=== PATIENT | female | born 1995 | race Two or more races ===

== ENCOUNTER 2019-07-30 12:37 | Inpatient (IN) | payer OTHER ==
[~2019-07-30] VITALS: Ht 167.6 cm; Wt 84.4 kg
[2019-08-03] MEDS ORDERED: PEPCID AC20 MG PO (08:03)
== END 2019-08-03 09:22 | disposition home or self-care (01) | DRG 440 ==
LOC: ER 12:37 → SURG 07-31 10:17
PROVIDERS: ADMIT Internal Medicine; ATTEND Internal Medicine
PROC: BW21ZZZ Computerized Tomography (CT Scan) of Abdomen and Pelvis (ICD-10-PCS; principal; 2019-07-31)
PROC: BW40ZZZ Ultrasonography of Abdomen (ICD-10-PCS; 2019-07-31)
DX: K85.20 Alcohol induced acute pancreatitis without necrosis or infection (principal); E86.0 Dehydration; K29.70 Gastritis, unspecified, without bleeding; E80.6 Other disorders of bilirubin metabolism

== ENCOUNTER 2019-10-25 17:16 | Emergency (ER) | payer OTHER ==
[~2019-10-25] VITALS: Ht 160 cm; Wt 81.2 kg
[~2019-10-25 17:16] MED LIST: PEPCID AC20 MG PO
== END 2019-10-25 20:54 | disposition home or self-care (01) ==
LOC: ER 17:16
DX: R10.13 Epigastric pain (principal); Z20.828 Contact with and (suspected) exposure to other viral communicable diseases

== ENCOUNTER 2019-11-02 14:28 | Emergency (ER) | payer OTHER ==
[~2019-11-02] VITALS: Ht 160 cm; Wt 79.4 kg
[2019-11-02] MEDS ORDERED: PEPCID AC10 MG PO (14:35)
== END 2019-11-02 19:51 | disposition home or self-care (01) ==
LOC: ER 14:28
DX: K29.60 Other gastritis without bleeding (principal)

== ENCOUNTER 2020-01-13 11:19 | Emergency (ER) | payer OTHER ==
[~2020-01-13] VITALS: Ht 160 cm; Wt 76.7 kg
[~2020-01-13 11:19] MED LIST changes: +PEPCID AC10 MG PO
== END 2020-01-13 16:12 | disposition home or self-care (01) ==
LOC: ER 11:19
DX: K52.89 Other specified noninfective gastroenteritis and colitis (principal)

== ENCOUNTER 2020-01-15 15:54 | Emergency (ER) | payer OTHER ==
[~2020-01-15] VITALS: Ht 160 cm; Wt 76.7 kg
== END 2020-01-15 23:20 | disposition home or self-care (01) ==
LOC: ER 15:54
DX: K29.60 Other gastritis without bleeding (principal); Z03.818 Encounter for observation for suspected exposure to other biological agents ruled out

== ENCOUNTER 2020-02-12 21:02 | Emergency (ER) | payer OTHER ==
[~2020-02-12] VITALS: Ht 160 cm; Wt 73.5 kg
[2020-02-13] MEDS ORDERED: PEPCID40 MG PO (06:48)
[2020-02-13] MEDS ORDERED: PROTONIX40 MG PO (06:48)
== END 2020-02-13 06:50 | disposition home or self-care (01) ==
LOC: ER 21:02
DX: K21.9 Gastro-esophageal reflux disease without esophagitis (principal)

== ENCOUNTER 2020-03-19 14:28 | Emergency (ER) | payer OTHER ==
[~2020-03-19] VITALS: Ht 160 cm; Wt 68.5 kg
[~2020-03-19 14:28] MED LIST changes: +PEPCID40 MG PO; +PROTONIX40 MG PO
== END 2020-03-20 02:38 | disposition home or self-care (01) ==
LOC: ER 14:28
DX: K52.89 Other specified noninfective gastroenteritis and colitis (principal); R11.2 Nausea with vomiting, unspecified

== ENCOUNTER 2020-03-21 10:49 | Emergency (ER) | payer OTHER ==
[~2020-03-21] VITALS: Ht 160 cm; Wt 66.2 kg
== END 2020-03-21 22:44 | disposition home or self-care (01) ==
LOC: ER 10:49
DX: K29.70 Gastritis, unspecified, without bleeding (principal); Z03.818 Encounter for observation for suspected exposure to other biological agents ruled out

== ENCOUNTER 2020-09-18 20:59 | Emergency (ER) | payer OTHER ==
[~2020-09-18] VITALS: Ht 160 cm; Wt 67.1 kg
[2020-09-19] MEDS ORDERED: PREVACID30 MG PO (12:35)
[2020-09-19] MEDS ORDERED: PEPCID AC20 MG PO (12:35)
[2020-09-19] MEDS ORDERED: CARAFATE1 GM PO (12:49)
[2020-11-26] MEDS ORDERED: ZOFRAN8 MG PO (03:39)
[2020-11-26] MEDS ORDERED: PROTONIX40 MG PO (03:39)
[2020-11-26] MEDS ORDERED: PEPCID40 MG PO (03:39)
== END 2020-09-19 13:01 | disposition home or self-care (01) ==
LOC: ER 20:59
DX: K29.00 Acute gastritis without bleeding (principal); R11.2 Nausea with vomiting, unspecified

== ENCOUNTER → 2020-11-25 | Emergency (ER) | payer OTHER ==
[~2020-11-25] VITALS: Ht 160 cm; Wt 67.1 kg
[~2020-11-25] MED LIST changes: +CARAFATE1 GM PO; +PREVACID30 MG PO; +ZOFRAN8 MG PO
== END | disposition home or self-care (01) ==
LOC: ER 13:56
DX: R11.10 Vomiting, unspecified (principal); K29.60 Other gastritis without bleeding

== ENCOUNTER 2020-11-27 12:02 | Emergency (ER) | payer OTHER ==
[~2020-11-27] VITALS: Ht 160 cm; Wt 67.1 kg
== END 2020-11-28 06:42 ==
LOC: ER 12:02
DX: K29.70 Gastritis, unspecified, without bleeding (principal); R10.13 Epigastric pain; R11.11 Vomiting without nausea; Z03.818 Encounter for observation for suspected exposure to other biological agents ruled out

== ENCOUNTER 2021-05-25 14:18 | Emergency (ER) | payer OTHER ==
[~2021-05-25] VITALS: Ht 160 cm; Wt 59.0 kg
== END 2021-05-25 19:25 | disposition home or self-care (01) ==
LOC: ER 14:18
DX: O20.9 Hemorrhage in early pregnancy, unspecified (principal); Z3A.08 8 weeks gestation of pregnancy; K29.00 Acute gastritis without bleeding

== ENCOUNTER 2021-05-31 19:05 | Inpatient (IN) | payer OTHER ==
[~2021-05-31] VITALS: Ht 162.6 cm; Wt 65.8 kg
[2021-05-31] MEDS ORDERED: PRENATALES (19:20)
== END 2021-06-04 14:56 | disposition home or self-care (01) | DRG 833 ==
LOC: ER 19:05 → OB/GYN 06-01 13:21
PROVIDERS: ADMIT Obstetrics & Gynecology; ATTEND Obstetrics & Gynecology
PROC: 4A1HXCZ Monitoring of Products of Conception, Cardiac Rate, External Approach (ICD-10-PCS; principal; 2021-06-01)
DX: O21.0 Mild hyperemesis gravidarum (principal); Z3A.09 9 weeks gestation of pregnancy; Z20.822 Contact with and (suspected) exposure to COVID-19

== ENCOUNTER 2021-06-11 23:15 | Inpatient (IN) | payer OTHER ==
[~2021-06-11 23:15] MED LIST changes: +PRENATALES
--- NOTE | 2021-06-11 23:28 | NUR ---
SE RECIBE PTE ALERTA Y ORIENTADA POR JUNO. PTE DE DR. HAMMOND, EMBARAZADA DE 10 SEMANAS INDICA TENER VOMITOS, NAUSEAS Y DEBILIDAD DESDE LA MANANA DE HOY.
--- NOTE | 2021-06-12 01:00 | NUR ---
PTE FEMENINA ALERTA Y ORIENTADA EN LAS JUNO ESFERAS ES EVALUADA POR . SE ORIENTA SOBRE ORDENES DE [place] REFIERE COMPRENDER. SE EXTRAEN MUESTRAS DE LABORATORIOS Y SE CANALIZA VENA BAJO MEDIDAS ASEPTICAS. SE ADMINISTRA MEDICAMENTOS, BAJO MEDIDAS ASEPTICAS. PTE MANEJADA POR DEONTE FUCHS.
[2021-06-12] MEDS ORDERED: PRENATAL + DHA1 EAC1 (10:38)
== END 2021-07-04 13:53 | disposition home or self-care (01) | DRG 831 ==
LOC: ER 23:15 → OB/GYN 06-12 07:00 → SEC-K 06-12 07:00 → OB/GYN 06-12 08:32
PROVIDERS: ADMIT Obstetrics & Gynecology; ATTEND Obstetrics & Gynecology
PROC: 4A1HXCZ Monitoring of Products of Conception, Cardiac Rate, External Approach (ICD-10-PCS; principal; 2021-06-12)
PROC: BW40ZZZ Ultrasonography of Abdomen (ICD-10-PCS; 2021-06-17)
PROC: BF37ZZZ Magnetic Resonance Imaging (MRI) of Pancreas (ICD-10-PCS; 2021-06-18)
PROC: BW40ZZZ Ultrasonography of Abdomen (ICD-10-PCS; 2021-06-21)
PROC: BY49ZZZ Ultrasonography of First Trimester, Single Fetus (ICD-10-PCS; 2021-06-21)
PROC: BF37ZZZ Magnetic Resonance Imaging (MRI) of Pancreas (ICD-10-PCS; 2021-06-25)
DX: O21.0 Mild hyperemesis gravidarum (principal); O26.891 Other specified pregnancy related conditions, first trimester; K85.80 Other acute pancreatitis without necrosis or infection; O21.1 Hyperemesis gravidarum with metabolic disturbance; K52.89 Other specified noninfective gastroenteritis and colitis; Z20.822 Contact with and (suspected) exposure to COVID-19; Z3A.12 12 weeks gestation of pregnancy; K29.00 Acute gastritis without bleeding; K21.9 Gastro-esophageal reflux disease without esophagitis

== ENCOUNTER 2021-10-16 13:24 | Outpatient (CLI) | payer OTHER ==
[~2021-10-16 13:24] MED LIST changes: +PRENATAL + DHA1 EAC1
== END 2021-10-16 14:22 | disposition home or self-care (01) ==
LOC: NST 13:24
PROVIDERS: ATTEND Obstetrics & Gynecology
DX: Z34.83 Encounter for supervision of other normal pregnancy, third trimester (principal)

== ENCOUNTER 2021-11-01 10:48 | Outpatient (CLI) | payer OTHER | END 2021-11-02 10:40 | disposition home or self-care (01) | LOC: OBS/DEL 10:48 | PROVIDERS: ATTEND Obstetrics & Gynecology | DX: O46.8X3 Other antepartum hemorrhage, third trimester (principal); Z3A.30 30 weeks gestation of pregnancy ==

== ENCOUNTER 2023-12-06 12:23 | Emergency (ER) | payer OTHER ==
[~2023-12-06] VITALS: Ht 160 cm; Wt 70.3 kg
[2023-12-06] MEDS ORDERED: ONDANSETRON HCL 2 MG/ML VIAL IV ONE (13:30)
[2023-12-06] MEDS ORDERED: FAMOtidine 10 MG/ML (4ML VIAL) IV ONE (13:30)
[2023-12-06] MEDS ORDERED: 0.9 % SODIUM CHLORIDE 1,000 ML IV ONE (13:30)
[2023-12-06 14:23] LABS: HEMATOCRIT 43.8 % (36.0-45.00); HEMOGLOBIN 15.7 g/dL (12.0-15.00); MEAN CELL VOLUME 88.1 fL (80.00-100.00); MEAN CORPUSCULAR HEMOGLOBIN 31.6 pg (27.00-32.0); MEAN CORPUSCULAR HGB CONC 35.9 g/dl (32.0-36.0); PLATELET COUNT 356 K/uL (150-450); RED BLOOD COUNT 4.97 M/uL (4.00-6.00); RED CELL DISTRIBUTION WIDTH 12.8 % (11.5-14.5)
[2023-12-06 14:46] LABS: ALBUMIN 4.6 gm/dL (3.4-5.0); ALKALINE PHOSPHATASE 88 U/L (50-136); ALT/SGPT 26 U/L (12-78); AMYLASE 110 U/L (25-115); ANION GAP 13 (10.0-20.0); AST/SGOT 27 U/L (15-37); BILIRUBIN TOTAL 0.74 mg/dL (0.3-1.2); BLOOD UREA NITROGEN 16 mg/dL (7-18); BUN CREA RATIO 28 (7.0-25.0); CARBON DIOXIDE 28 mEq/L (21-32); CHLORIDE 99 mmol/L (98-107); CREATININE SERUM 0.58 mg/dL (0.55-1.02); GFR 122.91; GLOBULINA 4.3 G/DL (2.4-3.5); GLUCOSE FASTING 103 mg/dL (65-100); LIPASE 63 U/L (13-75); OSMOLALITY SERUM 273 MOSM/KG (275-295); POTASSIUM 3.89 mEq/L (3.5-5.1); SODIUM 136 mmol/L (136-145); TOTAL PROTEIN 8.9 gm/dL (6.4-8.2)
[2023-12-06 14:47] LABS: HCG QUANTITATIVE < 1 mUI/mL (1-3)
[2023-12-06] MEDS ORDERED: CEFTRIAXONE SODIUM 1,000 MG VIAL IV ONE (15:30)
[2023-12-06 16:13] LABS: URINE APPEARANCE Cloudy; URINE BILIRRUBIN Negative (NEGATIVE); URINE BLOOD Negative; URINE COLOR Yellow; URINE GLUCOSE Negative (NEGATIVE); URINE LEUKOCYTE Negative; URINE NITRATE Negative
[2023-12-06 16:17] LABS: URINE BACTERIA 5053.8 uL (0.0-1933); URINE EPITHELIAL CELLS 124.1 uL (0.0-38.8); URINE RBC 19.5 uL (0.0-20.8)
[2023-12-06 16:32] LABS: URINE CAST 1.37 uL (0.0-1.40); URINE KETONE 80 (NEGATIVE); URINE PROTEIN 300 (NEGATIVE)
[2023-12-07] MEDS ORDERED: PEPCID AC20 MG PO (21:52)
[2023-12-07] MEDS ORDERED: MACRODANTIN100 M1 PO (21:52)
[2023-12-07] MEDS ORDERED: ZOFRAN8 MG PO (21:52)
== END 2023-12-06 19:57 | disposition home or self-care (01) ==
LOC: ER 12:23
PROVIDERS: General Practice
DX: K21.9 Gastro-esophageal reflux disease without esophagitis (principal); R11.10 Vomiting, unspecified; E86.0 Dehydration
CPT/HCPCS: 36415; 74177; Q9965

== ENCOUNTER → 2024-06-26 | Emergency (ER) | payer OTHER ==
[~2024-06-26] VITALS: Ht 157.5 cm; Wt 62.1 kg
[~2024-06-26] MED LIST changes: +MACRODANTIN100 M1 PO; +POTASSIUM CHLORIDE IN 0.9%NACL 40 MEQ/1,000 ML PIGGYBAG IV STA
[2024-06-26 13:43] LABS: HEMATOCRIT 44.4 % (36.0-45.00); HEMOGLOBIN 15.7 g/dL (12.0-15.00); MEAN CELL VOLUME 88.1 fL (80.00-100.00); MEAN CORPUSCULAR HGB CONC 35.2 g/dl (32.0-36.0); PLATELET COUNT 269 K/uL (150-450); RED BLOOD COUNT 5.04 M/uL (4.00-6.00); RED CELL DISTRIBUTION WIDTH 12.3 % (11.5-14.5)
[2024-06-26 13:48] LABS: PH,URINE 6.5 (5.0-8.0); URINE APPEARANCE Cloudy; URINE BILIRRUBIN Small (NEGATIVE); URINE BLOOD Negative; URINE COLOR Dark Yellow; URINE GLUCOSE Negative (NEGATIVE); URINE LEUKOCYTE Moderate; URINE NITRATE Negative; URINE PROTEIN 30 (NEGATIVE)
[2024-06-26 13:51] LABS: URINE BACTERIA 1335.3 uL (0.0-1933); URINE EPITHELIAL CELLS 84.8 uL (0.0-38.8); URINE RBC 11.1 uL (0.0-20.8)
[2024-06-26 14:09] LABS: URINE CAST 0.14 uL (0.0-1.40); URINE KETONE 80 (NEGATIVE)
[2024-06-26 14:10] LABS: CALCIUM 9.1 mg/dL (8.5-10.1); CREATININE SERUM 0.69 mg/dL (0.55-1.02); GFR 100.59
[2024-06-26 14:12] LABS: URINE TRICHOMONAS MODERATE
[2024-06-26 15:19] LABS: POTASSIUM 2.72 mEq/L (3.5-5.1)
== END | disposition left against medical advice (07) ==
LOC: ER 12:06
PROVIDERS: General Practice
DX: K59.00 Constipation, unspecified (principal)

== ENCOUNTER 2024-12-11 12:08 | Emergency (ER) | payer OTHER ==
[~2024-12-11] VITALS: Ht 160 cm; Wt 65.8 kg
[~2024-12-11 12:08] MED LIST changes: -POTASSIUM CHLORIDE IN 0.9%NACL 40 MEQ/1,000 ML PIGGYBAG IV STA
[2024-12-11] MEDS ORDERED: ONDANSETRON HCL 2 MG/ML VIAL ONE ×2 (14:10→17:11)
[2024-12-11] MEDS ORDERED: FAMOTIDINE/PF 20 MG/2 ML VIAL ONE ×2 (14:11→17:11)
[2024-12-11] MEDS ORDERED: ONDANSETRON HCL 2 MG/ML VIAL IV ONE (14:15)
[2024-12-11] MEDS ORDERED: 0.9 % SODIUM CHLORIDE 1,000 ML IV SCH (14:15)
[2024-12-11] MEDS ORDERED: FAMOTIDINE/PF 20 MG/2 ML VIAL IV ONE (14:15)
[2024-12-11 15:18] LABS: ALT/SGPT 32.0 U/L (12-78); AST/SGOT 16.0 U/L (15-37); BILIRUBIN TOTAL 0.75 mg/dL (0.3-1.2); BUN CREA RATIO 19.0 (7.0-25.0); CREATININE SERUM 0.63 mg/dL (0.55-1.02); GFR 110.95; GLOBULINA 4.1 G/DL (2.4-3.5); GLUCOSE FASTING 104.0 mg/dL (65-100); OSMOLALITY SERUM 278.0 MOSM/KG (275-295)
[2024-12-11 16:24] LABS: URINE APPEARANCE Cloudy; URINE BILIRRUBIN Negative (NEGATIVE); URINE BLOOD Negative; URINE COLOR Dark Yellow; URINE GLUCOSE Negative (NEGATIVE); URINE KETONE 15 (NEGATIVE); URINE LEUKOCYTE Trace; URINE NITRATE Negative; URINE UROBILINOGEN 1.0 E.U./dl
[2024-12-11 16:28] LABS: URINE BACTERIA 979.1 uL (0.0-1933); URINE EPITHELIAL CELLS 82.1 uL (0.0-38.8); URINE RBC 8.2 uL (0.0-20.8); URINE WBC 33.2 uL (0.0-23.2)
[2024-12-11 16:46] LABS: TYPE CELLS SQUAMOUS; URINE CAST 0.87 uL (0.0-1.40); URINE CRYSTALS FEW /HPF; URINE MUCUS MODERATE; URINE PROTEIN 100 (NEGATIVE)
[2024-12-11 17:52] LABS: BASO % 0.3 % (0.1-1.2); EOS # 0.00 (0.04-0.54); EOS % 0.0 % (0.7-7.0); LYMPH # 1.90 (1.18-3.74); LYMPH % 15.0 % (19.3-53.1); MEAN PLATELET VOLUME 10.40 fl (9.4-12.4); MONO # 1.22 (0.24-0.82); MONO % 9.6 % (4.7-12.5); NEUT # 9.45 (1.56-6.13); NEUT % 74.8 % (34.0-71.1); RED CELL DISTRIBUTION WIDTH 12.9 % (11.6-14.4)
== END 2024-12-11 20:31 | disposition home or self-care (01) ==
LOC: ER 12:08
PROVIDERS: General Practice
DX: N39.0 Urinary tract infection, site not specified (principal); R10.9 Unspecified abdominal pain; K29.70 Gastritis, unspecified, without bleeding; K30 Functional dyspepsia